=== PATIENT | female | born 1945 | race Caucasian/White ===

== ENCOUNTER 2016-08-12 07:30 | Inpatient (IN) | payer MEDICARE ==
[2016-07-30 11:42] VITALS: BP 130/94
--- NOTE | 2016-08-05 13:50 | HPE ---
DATE OF PLANNED ADMISSION: 08/12/2016 DATE: 08/04/2016 HISTORY OF PRESENT ILLNESS: This is a pleasant female with continuing symptomatic right hip osteoarthritis. She consented for a right total hip arthroplasty per Dr. Alexandro Swift. Medical optimization per Dr. Gabriele Harmon. X-rays are consistent with advanced osteoarthritis. ALLERGIES: No known drugs. MEDICATIONS: Includes: - Bactrim DS one by mouth twice a day for 7 days - tramadol HCl 50 mg one every 4 to 6 hours as needed for pain - Zoloft 100 mg - vitamin D 3000 units 1 tablet by mouth daily - spironolactone 25 mg one by mouth every day - furosemide 40 mg one by mouth every day - Irbesartan 300 mg - Coumadin which she will take 5 mg at bedtime the night before surgery MEDICAL PROBLEM LIST: Right hip arthritis Essential hypertension. Anxiety. Depression. Urinary infection. Chronic kidney disease. Appears to be stage IV per GFR of 27.2. PAST SURGICAL HISTORY: Bilateral total knee arthroplasties. FAMILY HISTORY: Pertinent for hypertension and diabetes. SOCIAL HISTORY: She is a former smoker. Rare alcohol consumption. Denies illicit drugs. REVIEW OF SYSTEMS: She denies chest pain, shortness of breath, dyspnea on exertion, fever, chills, malaise, upper respiratory or urinary tract symptoms. PHYSICAL EXAMINATION: Height 5 feet 2 inches, weight 222, temperature 98.6, BP 144/86, pulse 80, respirations 16. This is a pleasant well-developed, well-nourished obese female in no acute distress. She is alert and oriented times three. Mood and affect are appropriate. She is ambulating with favoring of her left lower and antalgic about her right lower extremity. Right lower extremity was inspected. Benign noninfectious looking. Right hip range of motion is limited throughout range. Bowel sounds times four, soft, nontender. Chest: Rises symmetrically. Lungs: Clear to auscultation. Neck: Supple. Negative jugular venous distention (JVD) or bruits. Normocephalic. Chest x-ray: No acute infiltrate, effusion, cardiomegaly, edema, atelectasis or mass was noted. Advanced degenerative changes about the bilateral shoulders. Stable chest as dictated by Dr. Chambers. EKG: Sinus rhythm as read by Dr. López. Lab results show 2+ leukocyte esterase, WBC urine auto 19. ESR 45, BUN 56, creatinine for GFR 1.94, GFR 27.2, AST/SGOT 13, alkaline phosphatase 121. IMPRESSION: 1. Symptomatic right hip osteoarthritis. 2. The patient consented for right total hip arthroplasty per Dr. Alexandro Swift. 3. Medical optimization per Dr. Harmon on 07/15/2016. 4. On-call to OR 2 grams IV Kefzol in OR. 5. Sequential compression devices (SCDs) and thromboembolism deterrents (TEDs) OR. 6. The patient is being treated for a urinary tract infection with Bactrim DS twice a day times 7 days. MTDD
[~2016-08-12] VITALS: Ht 162.6 cm; Wt 104.0 kg
[2016-08-12] VITALS (7 sets, daily range): BP systolic 135–153; BP diastolic 64–73
[~2016-08-12 07:30] MED LIST: /WARF25TA PO; ACET-654 PO; ALEV220T26 PO; AVAP300T23 PO; COUM2.5T11 PO; FURO20TA PO; IRBE300T10 PO; LORT5TAB PO; OMEP20CA3 PO; OXYC-299 PO; OXYC5TAB2 PO; PERCOCET PO; SERT20CO PO; SPIR25TA2 PO; SPIROLACTONE PO; TYLE167L PO; TYLE500T78 PO; VITAMIN D PO
[2016-08-12] MEDS ORDERED: LR 1,000 ML IV SCH ×2 (08:00→11:45)
[2016-08-12] MEDS: SERTRALINE 100 MG TAB PO SCH (09:00)
[2016-08-12] MEDS ORDERED: TRANEXAMIC ACID 100 MG/ML 10ML VIAL As Ordered ONE (09:11)
[2016-08-12] MEDS ORDERED: BUPIVACAINE HCL 0.5% 10 ML VIAL As Ordered ONE (09:11)
[2016-08-12] MEDS ORDERED: fentaNYL 100 MCG/2 ML INJECTION (J3010) As Ordered ONE ×2 (09:11→09:54)
[2016-08-12] MEDS ORDERED: BUPIVACAINE HCL 0.25% 30 ML VIAL As Ordered ONE (09:11)
[2016-08-12] MEDS ORDERED: EPINEPHrine INJ 1 MG/ML 1ML VIAL/AMP As Ordered ONE (09:12)
[2016-08-12] MEDS ORDERED: ceFAZolin 1GM INJ (J0690) As Ordered ONE (09:12)
[2016-08-12] MEDS ORDERED: PHENYLephrine HCL 500 MCG/5 ML (100MCG/ML) SYRINGE (J2370) As Ordered ONE (09:54)
[2016-08-12] MEDS ORDERED: LIDOCAINE 2% INJ 100 MG/5 ML SDV (FOR ANES.) As Ordered ONE (09:54)
[2016-08-12] MEDS ORDERED: MIDAZOLAM INJ 2 MG/2 ML VIAL (J2250) As Ordered ONE (09:54)
[2016-08-12] MEDS ORDERED: PROPOFOL 200 MG/20 ML VIAL As Ordered ONE (09:54)
[2016-08-12] MEDS ORDERED: PHENYLEPHRINE INJ 10MG/ML VIAL (J2370) As Ordered ONE (10:16)
[2016-08-12] MEDS ORDERED: BUPIVACAINE HCL 0.25% 30 ML VIAL XX ONE (10:20)
[2016-08-12] MEDS ORDERED: fentaNYL 100 MCG/2 ML INJECTION (J3010) XX ONE (10:20)
[2016-08-12] MEDS ORDERED: EPINEPHrine INJ 1 MG/ML 1ML VIAL/AMP XX ONE (10:20)
[2016-08-12] MEDS ORDERED: ceFAZolin 1GM INJ (J0690) IR ONE (10:20)
[2016-08-12] MEDS ORDERED: BUPIVACAINE HCL 0.5% 10 ML VIAL XX ONE (10:20)
[2016-08-12] MEDS ORDERED: TRANEXAMIC ACID 100 MG/ML 10ML VIAL XX ONE (10:20)
[2016-08-12] MEDS ORDERED: MORPHINE PCA 1MG/ML 100ML CADD As Ordered ONE (11:09)
[2016-08-12] MEDS: fentaNYL 100 MCG/2 ML INJECTION (J3010) IV PRN ×2 (11:30→11:40)
[2016-08-12] MEDS ORDERED: PERCOCET 5MG/325MG TAB PO PRN (11:45)
[2016-08-12] MEDS ORDERED: HYDROmorphone HCL 1 MG/ML SYRINGE (J1170) IV PRN (11:45)
[2016-08-12] MEDS ORDERED: ONDANSETRON 4MG/2ML VIAL (J2405) IV PRN ×2 (11:45→12:00)
[2016-08-12] MEDS: D5W/0.45% SODIUM CHLORIDE 1,000 ML IV SCH ×2 (12:00→20:20)
[2016-08-12] MEDS ORDERED: ACETAMINOPHEN TAB 650MG DOSE (2X325MG) PO PRN (12:00)
[2016-08-12] MEDS ORDERED: EPIDURAL/PCA KEYS XX PRN (12:00)
[2016-08-12] MEDS ORDERED: MORPHINE PCA 1MG/ML 100ML CADD IV PRN (12:00)
[2016-08-12] MEDS ORDERED: FLEET ENEMA PR PRN (12:00)
[2016-08-12] MEDS ORDERED: PATIENT IS CURRENTLY ON AN ON-Q PAIN BUSTER PAIN RELIEF SYSTEM XX SCH (12:00)
[2016-08-12] MEDS ORDERED: NALBUPHINE HCL 10 MG/ML AMP (J2300) IV PRN (12:00)
[2016-08-12] MEDS ORDERED: NALOXONE INJ 0.4 MG/1 ML VIAL (J2310) IV PRN (12:00)
[2016-08-12] MEDS: diphenhydrAMINE INJ 50MG/ML VIAL (J1200) IV PRN (12:15)
[2016-08-12] MEDS ORDERED: WARFARIN SOD 5 MG TAB PO ONE (17:00)
--- NOTE | 2016-08-12 20:48 | CR ---
DATE OF CONSULTATION: 08/12/2016 REASON FOR CONSULTATION: Medical management for postoperative patient. HISTORY OF PRESENT ILLNESS: The patient is a 70-year-old female with a history of chronic osteoarthritis, essential hypertension, anxiety/depression, chronic kidney disease (CKD), stage IV, who came to [facility] for her right hip replacement on 08/04/2016, and patient has been experiencing significant osteoarthritis. Previously patient had a right knee and left hip replacement. The outpatient preoperative optimization was performed by Dr. Harmon. Today she had right hip replacement for severe osteoarthritis. Patient tolerated the procedure well. No complications. ALLERGIES: No known drug allergies. HOME MEDICATIONS: - tramadol 50 mg by mouth every 4-6 hours as needed for pain - Zoloft 100 mg by mouth daily - vitamin D 3000 units one tablet by mouth daily - spironolactone 25 mg by mouth daily - Lasix 40 mg by mouth daily - irbesartan 30 mg by mouth daily PAST MEDICAL HISTORY: 1. Essential hypertension. 2. Anxiety/depression. 3. CKD, stage IV. PAST SURGICAL HISTORY: 1. Right hip replacement. 2. Right knee replacement. 3. Hysterectomy. 4. Partial thyroidectomy for calcium deposit on the thyroid. SOCIAL HISTORY: Patient used to smoke one pack daily for 15 years; quit 40 years ago. Patient drinks wine on a weekly basis. Denies any recreational drug use. REVIEW OF SYSTEMS: GENERAL: No acute distress. Patient denies any fevers or chills. HEENT: No vision change. No auditory changes CARDIOVASCULAR: No chest pain. No palpitations. RESPIRATORY: No cough. No sputum production. No wheezes. GASTROINTESTINAL: No abdominal pain. No nausea, vomiting. No diarrhea. MUSCULOSKELETAL: Patient just had a right hip replacement. Patient has severe osteoarthritis. Patient had a right knee and left hip replacement in the past. Patient does have intermittent lower extremity swelling. NEUROLOGIC: Denied any numbness or tingling. OBJECTIVE: VITAL SIGNS: Blood pressure is 141/57, heart rate 88, oxygen saturation 92% with 2 liters nasal cannula. GENERAL: No sign of acute distress. Alert and oriented times three. HEENT: Normocephalic, atraumatic. Extraocular motor grossly intact. CARDIOVASCULAR: Positive S1, S2. Regular rate. LUNGS: Decreased breath sounds; however, clear to auscultation bilaterally. No wheezes. ABDOMEN: Soft, nontender, nondistended. Bowel sounds present. EXTREMITIES: Mild edema. No sign of cyanosis. NEUROLOGIC: Sensation to fine touch grossly intact. Muscle strength intact. LABORATORY DATA: Done on 07/30/2016, WBC 8.8, hemoglobin is 12.4, hematocrit is 39.7, platelet count is 387. Sodium 139, potassium 4.8, chloride 105, carbon dioxide 24, BUN 56, creatinine 1.94, GFR is 27.2, fasting glucose is 90. ASSESSMENT AND PLAN: 1. Right hip replacement. Surgery date 08/12/2016. Will refer diet, pain control, activity level, and anticoagulation to the primary team. 2. Hypertension. At home patient is taking irbesartan, Lasix, and spironolactone. Currently patient is receiving intravenous (IV) fluid and will continue to observe the patient. We are not going to restart the Lasix or the spironolactone while the patient is on the fluid. 3. Stage IV chronic kidney injury. Will follow with renal functions. 4. Anxiety/depression. Restart the Zoloft. 5. Deep vein thrombosis (DVT) prophylaxis. Per primary team.
[2016-08-13 02:00] VITALS: BP 145/68
[2016-08-13] MEDS: diphenhydrAMINE INJ 50MG/ML VIAL (J1200) IV PRN (05:36)
[2016-08-13] MEDS: D5W/0.45% SODIUM CHLORIDE 1,000 ML IV SCH (05:37)
[2016-08-13 06:00] VITALS: BP 139/61
[2016-08-13] MEDS ORDERED: PERCOCET 5MG/325MG TAB PO PRN (06:30)
[2016-08-13] MEDS ORDERED: ONDANSETRON 4 MG TAB (S0181) PO PRN (06:30)
[2016-08-13 07:15] LABS: MEAN CORPUSCULAR HEMOGLOBIN 27.6 pg (27.0-33.0); MEAN CORPUSCULAR HGB CONC 31.1 g/dl (32.0-36.5); MEAN CORPUSCULAR VOLUME 88.7 fl (80.0-96.0); RED CELL DISTRIBUTION WIDTH 13.7 % (11.5-14.5); WHITE BLOOD COUNT 8.4 K/mm3 (4.0-10.0)
[2016-08-13 07:23] LABS: INR 1.21
[2016-08-13 07:29] LABS: CALCIUM LEVEL 8.7 MG/DL (8.8-10.2); CREATININE FOR GFR 1.72 MG/DL (0.55-1.02); GLOMERULAR FILTRATION RATE 31.3 (>45); POTASSIUM SERUM 4.7 MEQ/L (3.5-5.1)
[2016-08-13] MEDS: MOM 30ML SUSPENSION UDC PO SCH (07:33)
[2016-08-13] MEDS: SERTRALINE 100 MG TAB PO SCH (07:33)
[2016-08-13] MEDS: SENOKOT S TAB PO SCH ×2 (07:33→20:57)
[2016-08-13] MEDS: MIRALAX *UNIT DOSE* 17GM PACKET PO SCH (07:33)
[2016-08-13] MEDS: PERCOCET 5MG/325MG TAB PO PRN ×4 (07:34→20:57)
--- NOTE | 2016-08-13 11:06 | REP ---
Right hip series: Three views. History: Check placement. Findings: AP and cross-table lateral views of the right hip demonstrate that the patient is status post right hip arthroplasty. This is seen in good position. Mild vascular calcification is noted. Lateral skin juarez are seen. A hip replacement is noted on the contralateral side as well. Impression: Status post right hip arthroplasty. Signed by Jeramie Mcneil MD 08/13/2016 02:42 P
[2016-08-13] MEDS ORDERED: WARFARIN SOD 5 MG TAB PO ONE (17:00)
--- NOTE | 2016-08-13 18:52 | RO ---
DATE OF PROCEDURE: 08/12/2016 PREOPERATIVE DIAGNOSIS: Right hip osteoarthritis. POSTOPERATIVE DIAGNOSIS: Right hip osteoarthritis. OPERATION PERFORMED: Right total hip replacement. SURGEON: Dr. Alexandro Swift MEDICAL RECEPTIONIST BILLER: BREANNE Bee ANESTHESIA: HISTORY: A 70-year-old female who has persistent pain from an arthritic right hip, stable on medical problems, and morbid obesity. FINDINGS AT SURGERY: A 50 mm cup, a 32 mm head on a #5 Docena stem. ESTIMATED BLOOD LOSS: Between 150 and 200 mL. None replaced intraoperatively. Mr. Urbina assisted by manipulating the leg and retracting vital structures. PROCEDURE: After adequate spinal anesthesia a Kline catheter placed, intravenous (IV) antibiotics were administered. The patient turned right side up in the Jeff, padded and positioned appropriately. Then after identifying the leg, the incision made anterolaterally. Bleeding points controlled with electrocautery. Iliotibial (IT) band divided in line with its fibers. The abductors reflected anteriorly. The labrum incised and the hip dislocated intermedullary canal was reamed for a #5 Docena and the neck divided. Following this the acetabulum was exposed and reamed to a 49 and a 50 mm cup was placed. We were at the cotyloid fossa. The apex hole eliminator installed. The plastic installed. Then the femur was broached to a #5 with a good fit. Trial reduction was performed. We had good range of motion good stability and soft tissue tension. Then trial components were removed. The permanent components malleted into place. Bustos taper engaged and the hip reduced. The capsule was closed with a heavy PDS suture. PainBuster catheter was installed. The TXA was used to irrigate the wound and then the abductors were repaired back to their bony insertions on the greater trochanter. The IT band was repaired with heavy PDS, subcu closed in layers. It was quite thick almost 2 inches and then juarez for skin. A dry dressing applied. The patient rolled flat turned so that abduction pillow could be applied. The sequential compression stockings were operative on the down leg and the PainBuster was primed with 10 mL of Marcaine.
[2016-08-13 22:00] VITALS: BP 118/53
[2016-08-14] MEDS: PERCOCET 5MG/325MG TAB PO PRN ×4 (04:21→23:46)
[2016-08-14 06:00] VITALS: BP 120/61
[2016-08-14 06:45] LABS: INR 1.73
[2016-08-14 06:47] LABS: MEAN CORPUSCULAR HEMOGLOBIN 26.7 pg (27.0-33.0); MEAN CORPUSCULAR HGB CONC 30.2 g/dl (32.0-36.5); MEAN CORPUSCULAR VOLUME 88.4 fl (80.0-96.0); RED CELL DISTRIBUTION WIDTH 14.8 % (11.5-14.5)
[2016-08-14 06:55] LABS: CALCIUM LEVEL 8.7 MG/DL (8.8-10.2); CREATININE FOR GFR 1.88 MG/DL (0.55-1.02); GLOMERULAR FILTRATION RATE 28.2 (>45); POTASSIUM SERUM 4.4 MEQ/L (3.5-5.1)
[2016-08-14] MEDS ORDERED: COUM2.5T11 PO (07:40)
[2016-08-14] MEDS ORDERED: PERC5TAB6 PO (07:40)
[2016-08-14] MEDS: MOM 30ML SUSPENSION UDC PO SCH (09:00)
[2016-08-14] MEDS: MIRALAX *UNIT DOSE* 17GM PACKET PO SCH (09:00)
[2016-08-14] MEDS ORDERED: INFLUENZA VIRUS VACCINE HIGH DOSE 0.5 ML SYRINGE (90662) IM ONE (09:00)
[2016-08-14] MEDS: SENOKOT S TAB PO SCH ×2 (09:00→20:05)
[2016-08-14] MEDS: SERTRALINE 100 MG TAB PO SCH (09:10)
[2016-08-14] MEDS: oxyCODONE 10 MG CR TAB PO SCH ×2 (11:48→20:05)
[2016-08-14 14:00] VITALS: BP 127/66
[2016-08-14] MEDS ORDERED: WARFARIN SOD 3 MG TAB PO ONE (17:00)
[2016-08-14 22:00] VITALS: BP 115/56
[2016-08-15] MEDS: PERCOCET 5MG/325MG TAB PO PRN ×3 (03:55→17:39)
[2016-08-15 06:00] VITALS: BP 129/60
[2016-08-15 06:51] LABS: MEAN CORPUSCULAR HEMOGLOBIN 27.7 pg (27.0-33.0); MEAN CORPUSCULAR HGB CONC 30.8 g/dl (32.0-36.5); MEAN CORPUSCULAR VOLUME 89.8 fl (80.0-96.0); RED CELL DISTRIBUTION WIDTH 13.8 % (11.5-14.5); WHITE BLOOD COUNT 8.3 K/mm3 (4.0-10.0)
[2016-08-15 06:59] LABS: INR 1.69
[2016-08-15 07:08] LABS: CALCIUM LEVEL 8.6 MG/DL (8.8-10.2); CREATININE FOR GFR 1.99 MG/DL (0.55-1.02); GLOMERULAR FILTRATION RATE 26.5 (>45); POTASSIUM SERUM 4.7 MEQ/L (3.5-5.1)
[2016-08-15] MEDS: MIRALAX *UNIT DOSE* 17GM PACKET PO SCH (09:28)
[2016-08-15] MEDS: SENOKOT S TAB PO SCH ×2 (09:28→20:00)
[2016-08-15] MEDS: SERTRALINE 100 MG TAB PO SCH (09:28)
[2016-08-15] MEDS: MOM 30ML SUSPENSION UDC PO SCH (09:29)
[2016-08-15] MEDS: oxyCODONE 10 MG CR TAB PO SCH ×2 (09:29→20:02)
[2016-08-15 14:00] VITALS: BP 133/62
[2016-08-15] MEDS ORDERED: WARFARIN SOD 4 MG TAB PO ONE (17:00)
[2016-08-15 22:00] VITALS: BP 128/66
[2016-08-16] MEDS: PERCOCET 5MG/325MG TAB PO PRN ×2 (04:12→10:28)
[2016-08-16 06:00] VITALS: BP 106/55
[2016-08-16 06:38] LABS: MEAN CORPUSCULAR HEMOGLOBIN 27.6 pg (27.0-33.0); MEAN CORPUSCULAR HGB CONC 30.3 g/dl (32.0-36.5); MEAN CORPUSCULAR VOLUME 90.9 fl (80.0-96.0); RED CELL DISTRIBUTION WIDTH 13.9 % (11.5-14.5); WHITE BLOOD COUNT 6.8 K/mm3 (4.0-10.0)
[2016-08-16 06:46] LABS: INR 1.79
[2016-08-16 06:51] LABS: CALCIUM LEVEL 8.8 MG/DL (8.8-10.2); CREATININE FOR GFR 2.13 MG/DL (0.55-1.02); GLOMERULAR FILTRATION RATE 24.5 (>45); POTASSIUM SERUM 4.9 MEQ/L (3.5-5.1)
[2016-08-16] MEDS: MOM 30ML SUSPENSION UDC PO SCH (08:34)
[2016-08-16] MEDS: MIRALAX *UNIT DOSE* 17GM PACKET PO SCH (08:34)
[2016-08-16] MEDS: SENOKOT S TAB PO SCH (08:35)
[2016-08-16] MEDS: SERTRALINE 100 MG TAB PO SCH (08:35)
[2016-08-16] MEDS: oxyCODONE 10 MG CR TAB PO SCH (08:36)
== END 2016-08-16 11:27 | disposition home health service (06) | DRG 470 ==
LOC: M OR 07:30 → M MS5PR 14:30
PROVIDERS: ADMIT Orthopaedic Surgery; ATTEND Orthopaedic Surgery
PROC: 0SR902A Replacement of Right Hip Joint with Metal on Polyethylene Synthetic Substitute, Uncemented, Open Approach (ICD-10-PCS; principal; 2016-08-12 09:05)
DX: M16.11 Unilateral primary osteoarthritis, right hip (principal); N18.4 Chronic kidney disease, stage 4 (severe); I12.9 Hypertensive chronic kidney disease with stage 1 through stage 4 chronic kidney disease, or unspecified chronic kidney disease; F41.8 Other specified anxiety disorders; Z96.642 Presence of left artificial hip joint; Z96.651 Presence of right artificial knee joint; Z90.710 Acquired absence of both cervix and uterus; Z79.899 Other long term (current) drug therapy; Z87.891 Personal history of nicotine dependence; Z83.3 Family history of diabetes mellitus; Z82.49 Family history of ischemic heart disease and other diseases of the circulatory system

== ENCOUNTER → 2016-08-19 | Outpatient (REF) | payer MEDICARE ==
[~2016-08-19] MED LIST changes: +PERC5TAB6 PO
[2016-08-19 13:35] LABS: INR 1.69
== END ==
LOC: M SHH 13:02 → M LAB REF 13:02
PROVIDERS: ATTEND Nurse Practitioner Family
DX: Z51.81 Encounter for therapeutic drug level monitoring (principal); Z79.01 Long term (current) use of anticoagulants

== ENCOUNTER → 2016-08-23 | Outpatient (REF) | payer MEDICARE ==
[2016-08-23 13:55] LABS: INR 1.93
== END ==
LOC: M SHH 13:27
PROVIDERS: ATTEND Nurse Practitioner Family
DX: Z51.81 Encounter for therapeutic drug level monitoring (principal); Z79.01 Long term (current) use of anticoagulants

== ENCOUNTER → 2016-08-26 | Outpatient (REF) | payer MEDICARE ==
[2016-08-26 14:19] LABS: INR 1.31
== END ==
LOC: M SHH 13:32
PROVIDERS: ATTEND Nurse Practitioner Family
DX: Z51.81 Encounter for therapeutic drug level monitoring (principal); Z79.01 Long term (current) use of anticoagulants

== ENCOUNTER → 2016-08-30 | Outpatient (REF) | payer MEDICARE ==
[2016-08-30 12:39] LABS: INR 1.52
== END ==
LOC: M SHH 11:52
PROVIDERS: ATTEND Internal Medicine
DX: Z51.81 Encounter for therapeutic drug level monitoring (principal); Z79.01 Long term (current) use of anticoagulants

== ENCOUNTER → 2016-09-02 | Outpatient (REF) | payer MEDICARE ==
[2016-09-02 13:01] LABS: INR 1.98
== END ==
LOC: M SHH 12:22
PROVIDERS: ATTEND Nurse Practitioner Family
DX: Z51.81 Encounter for therapeutic drug level monitoring (principal); Z79.01 Long term (current) use of anticoagulants

== ENCOUNTER → 2016-09-06 | Outpatient (REF) | payer MEDICARE ==
[2016-09-06 10:50] LABS: INR 1.93
== END ==
LOC: M SHH 10:22 → M LAB REF 10:22
PROVIDERS: ATTEND Nurse Practitioner Family
DX: Z79.01 Long term (current) use of anticoagulants (principal)

== ENCOUNTER → 2016-09-09 | Outpatient (REF) | payer MEDICARE ==
[2016-09-09 12:36] LABS: INR 2.32
== END ==
LOC: M SHH 12:06
PROVIDERS: ATTEND Nurse Practitioner Family
DX: Z79.01 Long term (current) use of anticoagulants (principal)

== ENCOUNTER → 2016-12-21 | Outpatient (REF) | payer MEDICARE ==
[2016-12-21 12:11] LABS: MEAN CORPUSCULAR HEMOGLOBIN 25.7 pg (27.0-33.0); MEAN CORPUSCULAR HGB CONC 30.5 g/dl (32.0-36.5); MEAN CORPUSCULAR VOLUME 84.2 fl (80.0-96.0); RED CELL DISTRIBUTION WIDTH 14.5 % (11.5-14.5); WHITE BLOOD COUNT 8.1 K/mm3 (4.0-10.0)
[2016-12-21 12:29] LABS: ALBUMIN 3.9 GM/DL (3.2-5.2); ALBUMIN/GLOBULIN RATIO 1.15 (1.00-1.93); BILIRUBIN,TOTAL 0.3 MG/DL (0.2-1.0); CALCIUM LEVEL 9.4 MG/DL (8.8-10.2); CREATININE FOR GFR 1.44 MG/DL (0.55-1.02); GLOMERULAR FILTRATION RATE 38.3 (>39); TOTAL PROTEIN 7.3 GM/DL (6.4-8.2)
== END ==
LOC: M LABDRAW1 11:40
PROVIDERS: ATTEND Family Medicine
DX: E11.9 Type 2 diabetes mellitus without complications (principal); E55.9 Vitamin D deficiency, unspecified; I10 Essential (primary) hypertension

== ENCOUNTER → 2017-03-29 | Outpatient (CLI) | payer MEDICARE ==
[~2017-03-29] MED LIST changes: -COUM2.5T11 PO; +COUM2.5T17 PO; +OXYC-141 PO; -OXYC-299 PO; +PERC5TAB12 PO; -PERC5TAB6 PO
--- NOTE | 2017-03-29 16:36 | REP ---
Urinary tract sonography: History: Chronic kidney disease stage III. Comparison study July 03, 2014. Findings: Scanning at the level of the urinary bladder shows no abnormality. Renal cortical echogenicity pattern is normal and renal contours are smooth on both sides. The right kidney measures 10.6 x 4.4 x 3.7 cm. Left renal dimensions are 10.0 x 4.2 x 4.7 cm. Some cortical thinning is seen bilaterally. There is a 1.9 x 2.3 x 1.9 cm cyst at the upper pole of the right kidney. There is a 1.9 x 1.3 x 1.7 cm hypoechoic area seen projecting from the periphery of the lower pole of the right kidney. This is consistent with a cyst. There is a 1.7 cm hypoechoic area in the lateral aspect of the right kidney consistent with a cyst as well. Two of these three were noted on the 2014 prior study. No mass or hydronephrosis is seen on either side. Impression: Three small cortical cysts right kidney. Mild diffuse cortical atrophy. Otherwise negative. Signed by Jeramie Mcneil MD 03/29/2017 05:01 P
== END ==
LOC: M RAD 12:17
PROVIDERS: ATTEND Internal Medicine Nephrology
DX: N28.1 Cyst of kidney, acquired (principal); N26.1 Atrophy of kidney (terminal); N18.3 Chronic kidney disease, stage 3 (moderate)

== ENCOUNTER → 2019-01-18 | Outpatient (REF) | payer MEDICARE ==
[~2019-01-18] MED LIST changes: -/WARF25TA PO; +COUM1TAB18 PO; +OXYC1TAB23 PO; -PERCOCET PO; +SPIR-10 PO; -SPIR25TA2 PO
[2019-01-18 14:07] LABS: PERCENT SATURATION 10.1 % (13.2-45.0)
== END ==
LOC: M LAB REF 13:18
PROVIDERS: ATTEND Internal Medicine Nephrology
DX: D50.9 Iron deficiency anemia, unspecified (principal)

== ENCOUNTER → 2020-04-19 | Outpatient (REF) | payer MEDICARE | LOC: M SFHCADAM 19:13 | PROVIDERS: ATTEND Physician Assistant | DX: J02.9 Acute pharyngitis, unspecified (principal) ==

== ENCOUNTER 2022-02-24 18:57 | Inpatient (IN) | payer MEDICARE ==
[~2022-02-24] VITALS: Ht 160 cm; Wt 106.9 kg
[2022-02-25] MEDS ORDERED: ISOVUE-370 76% 100ML VIAL As Ordered ONE (00:08)
[2022-02-25 00:10] LABS: INR 1.07; PROTHROMBIN TIME 14.3 SECONDS (12.7-14.5)
[2022-02-25 00:11] LABS: PARTIAL THROMBOPLASTIN TIME 30.9 SECONDS (25.9-37.0)
[2022-02-25 00:35] LABS: BASO % 0.3 % (0.0-1.0); EOS # 0.1 10^3/uL (0.0-0.5); EOS % 0.5 % (0.0-3.0); HEMATOCRIT 35.6 % (36.0-47.0); HEMOGLOBIN 10.6 g/dl (12.0-15.5); LYMPH # 0.9 10^3/uL (1.5-5.0); MEAN CORPUSCULAR HGB CONC 29.8 g/dl (32.0-36.5); MEAN CORPUSCULAR VOLUME 90.6 fl (80.0-96.0); MONO # 0.6 10^3/uL (0.0-0.8); MONO % 5.8 % (2.0-8.0); NEUTROPHILS # 8.7 10^3/uL (1.5-8.5); NEUTROPHILS % 83.9 % (36.0-66.0); PLATELET COUNT, AUTOMATED 324 10^3/uL (150-450); RED BLOOD COUNT 3.93 10^6/uL (4.00-5.40); WHITE BLOOD COUNT 10.4 10^3/uL (4.0-10.0)
[2022-02-25 01:37] LABS: CALCIUM LEVEL 9.7 MG/DL (8.8-10.2); CREATININE FOR GFR 5.89 MG/DL (0.55-1.30); GLOMERULAR FILTRATION RATE 7.4 (>39); POTASSIUM SERUM 6.6 MEQ/L (3.5-5.1)
[2022-02-25 01:42] LABS: RSV AMPLIFICATION NEGATIVE (NEGATIVE)
[2022-02-25] MEDS ORDERED: HumuLIN R (REGULAR) INSULIN (NovoLIN R) **100U/ML** PER UNIT IV ONE (02:00)
[2022-02-25] MEDS ORDERED: CALCIUM GLUCONATE 1,000MG/10ML VIAL (100MG/ML) (J0610) IV ONE (02:00)
[2022-02-25] MEDS ORDERED: DEXTROSE 50% 50 ML SYRINGE IV ONE (02:00)
[2022-02-25] MEDS ORDERED: NS 500 ML IV ONE (02:05)
[2022-02-25] MEDS ORDERED: ACETAMINOPHEN TAB 650MG DOSE (2X325MG) PO PRN (02:05)
[2022-02-25] MEDS ORDERED: BISACODYL 5 MG TAB PO PRN (03:10)
[2022-02-25] MEDS ORDERED: NS 1,000 ML IV SCH (03:10)
[2022-02-25] MEDS ORDERED: SPIR-10 PO (04:05)
[2022-02-25] MEDS ORDERED: ACET-897 PO (04:05)
[2022-02-25] MEDS ORDERED: FURO40TA2 PO (04:05)
[2022-02-25] MEDS ORDERED: METO1TAB32 PO (04:05)
[2022-02-25] MEDS ORDERED: VITA30004 PO (04:05)
[2022-02-25] MEDS ORDERED: OMEP-173 PO (04:05)
[2022-02-25] MEDS ORDERED: ZOLO100T PO (04:05)
[2022-02-25] MEDS ORDERED: ACET300T47 PO (04:05)
[2022-02-25] MEDS ORDERED: TARTCAP PO (04:05)
[2022-02-25] MEDS ORDERED: HOME MED LIST COMPLETE! XX SCH (04:10)
[2022-02-25 05:05] LABS: BASO % 0.3 % (0.0-1.0); EOS % 0.2 % (0.0-3.0); HEMATOCRIT 33.1 % (36.0-47.0); LYMPH # 0.9 10^3/uL (1.5-5.0); LYMPH % 10.3 % (24.0-44.0); MEAN CORPUSCULAR HGB CONC 30.2 g/dl (32.0-36.5); MEAN CORPUSCULAR VOLUME 89.5 fl (80.0-96.0); MONO # 0.7 10^3/uL (0.0-0.8); MONO % 7.4 % (2.0-8.0); NEUTROPHILS # 7.3 10^3/uL (1.5-8.5); NEUTROPHILS % 81.5 % (36.0-66.0); PLATELET COUNT, AUTOMATED 262 10^3/uL (150-450)
[2022-02-25 05:44] LABS: CALCIUM LEVEL 9.8 MG/DL (8.8-10.2); CREATININE FOR GFR 5.57 MG/DL (0.55-1.30); GLOMERULAR FILTRATION RATE 7.9 (>39); POTASSIUM SERUM 6.3 MEQ/L (3.5-5.1)
[2022-02-25 05:48] LABS: ALBUMIN 3.9 GM/DL (3.2-5.2); BILIRUBIN,TOTAL 0.3 MG/DL (0.2-1.0); CALCIUM LEVEL 9.8 MG/DL (8.8-10.2); CREATININE FOR GFR 5.56 MG/DL (0.55-1.30); GLOMERULAR FILTRATION RATE 7.9 (>39); POTASSIUM SERUM 6.4 MEQ/L (3.5-5.1); TOTAL PROTEIN 7.1 GM/DL (6.4-8.2)
[2022-02-25] MEDS ORDERED: SODIUM BICARBONATE 8.4% INJ 50 ML SYRINGE IV STA (05:50)
[2022-02-25] MEDS ORDERED: HumuLIN R (REGULAR) INSULIN (NovoLIN R) **100U/ML** PER UNIT IV STA (05:50)
[2022-02-25] MEDS ORDERED: DEXTROSE 50% 50 ML SYRINGE IV STA (05:50)
[2022-02-25] MEDS: HEPARIN SOD (PORCINE) 5000UNITS/ML 1ML VIAL/SYRINGE SQ SCH ×3 (06:00→21:30)
[2022-02-25] MEDS ORDERED: SOD POLYSTYRENE SULFONATE SUSP 15GM 60ML UD PO ONE (06:00)
[2022-02-25] MEDS ORDERED: CALCIUM GLUCONATE 1,000 MG in D5W MINI-BAG PLUS 100 ML IV ONE (06:00)
[2022-02-25 08:00] VITALS: BP 106/56
[2022-02-25 08:43] LABS: CALCIUM LEVEL 10.1 MG/DL (8.8-10.2); CREATININE FOR GFR 5.49 MG/DL (0.55-1.30); GLOMERULAR FILTRATION RATE 8.1 (>39); POTASSIUM SERUM 6.1 MEQ/L (3.5-5.1)
[2022-02-25] MEDS: METOPROLOL SUCC *XL* 25MG TAB (TopROL *XL*) PO SCH (08:52)
[2022-02-25] MEDS: DOCUSATE SODIUM 100MG CAPSULE PO SCH ×2 (08:58→21:30)
[2022-02-25] MEDS: OMEPRAZOLE 20MG CAP PO SCH (08:58)
[2022-02-25 12:00] VITALS: BP 110/54
[2022-02-25] MEDS: PATIROMER SORBITEX CALCIUM 8.4 GM POWDER PACKET (VELTASSA) PO SCH (14:50)
[2022-02-25 16:00] VITALS: BP 126/58
[2022-02-25] MEDS: SODIUM BICARBONATE 150 MEQ in STERILE WATER LITER BAG 1,000 ML IV SCH (16:22)
[2022-02-25 20:00] VITALS: BP 128/58
[2022-02-25 20:36] LABS: CALCIUM LEVEL 9.3 MG/DL (8.8-10.2); CREATININE FOR GFR 4.72 MG/DL (0.55-1.30); GLOMERULAR FILTRATION RATE 9.6 (>39)
[2022-02-25] MEDS: SODIUM BICARBONATE 325 MG TAB PO SCH (21:30)
[2022-02-25 23:31] VITALS: BP 124/55
[2022-02-26] VITALS (16 sets, daily range): BP systolic 103–137; BP diastolic 53–59; O2SAT 95–98
[2022-02-26] MEDS: SODIUM BICARBONATE 150 MEQ in STERILE WATER LITER BAG 1,000 ML IV SCH ×2 (03:12→14:31)
[2022-02-26 04:45] LABS: BASO % 0.3 % (0.0-1.0); EOS # 0.1 10^3/uL (0.0-0.5); EOS % 1.9 % (0.0-3.0); HEMATOCRIT 28.4 % (36.0-47.0); HEMOGLOBIN 8.6 g/dl (12.0-15.5); LYMPH # 0.9 10^3/uL (1.5-5.0); LYMPH % 13.7 % (24.0-44.0); MEAN CORPUSCULAR HEMOGLOBIN 26.3 pg (27.0-33.0); MEAN CORPUSCULAR HGB CONC 30.3 g/dl (32.0-36.5); MEAN CORPUSCULAR VOLUME 86.9 fl (80.0-96.0); MONO # 0.6 10^3/uL (0.0-0.8); MONO % 8.6 % (2.0-8.0); NEUTROPHILS # 5.1 10^3/uL (1.5-8.5); NEUTROPHILS % 75.1 % (36.0-66.0); PLATELET COUNT, AUTOMATED 244 10^3/uL (150-450); RED BLOOD COUNT 3.27 10^6/uL (4.00-5.40); WHITE BLOOD COUNT 6.8 10^3/uL (4.0-10.0)
[2022-02-26 05:12] LABS: CREATININE FOR GFR 4.55 MG/DL (0.55-1.30); MAGNESIUM LEVEL 2.3 MG/DL (1.8-2.4); PHOSPHORUS LEVEL 4.9 MG/DL (2.5-4.9)
[2022-02-26] MEDS: HEPARIN SOD (PORCINE) 5000UNITS/ML 1ML VIAL/SYRINGE SQ SCH ×3 (06:20→21:12)
[2022-02-26 09:37] LABS: TOTAL 25(OH) VITAMIN D 41.3 NG/ML (30.0-100.0)
[2022-02-26] MEDS: SODIUM BICARBONATE 325 MG TAB PO SCH (09:37)
[2022-02-26] MEDS: DOCUSATE SODIUM 100MG CAPSULE PO SCH ×2 (09:37→21:00)
[2022-02-26] MEDS: METOPROLOL SUCC *XL* 25MG TAB (TopROL *XL*) PO SCH (09:37)
[2022-02-26] MEDS: OMEPRAZOLE 20MG CAP PO SCH (09:37)
[2022-02-26] MEDS: PATIROMER SORBITEX CALCIUM 8.4 GM POWDER PACKET (VELTASSA) PO SCH (12:31)
[2022-02-27] VITALS (12 sets, daily range): BP systolic 128–149; BP diastolic 55–64; O2SAT 92–97
[2022-02-27] MEDS: HEPARIN SOD (PORCINE) 5000UNITS/ML 1ML VIAL/SYRINGE SQ SCH ×3 (05:27→23:19)
[2022-02-27] MEDS: SODIUM BICARBONATE 150 MEQ in STERILE WATER LITER BAG 1,000 ML IV SCH (05:27)
[2022-02-27 06:26] LABS: BASO % 0.2 % (0.0-1.0); EOS # 0.1 10^3/uL (0.0-0.5); EOS % 0.8 % (0.0-3.0); HEMATOCRIT 27.5 % (36.0-47.0); HEMOGLOBIN 8.5 g/dl (12.0-15.5); LYMPH # 0.9 10^3/uL (1.5-5.0); LYMPH % 14.7 % (24.0-44.0); MEAN CORPUSCULAR HEMOGLOBIN 26.9 pg (27.0-33.0); MEAN CORPUSCULAR HGB CONC 30.9 g/dl (32.0-36.5); MONO # 0.6 10^3/uL (0.0-0.8); MONO % 10.1 % (2.0-8.0); NEUTROPHILS # 4.7 10^3/uL (1.5-8.5); NEUTROPHILS % 73.9 % (36.0-66.0); PLATELET COUNT, AUTOMATED 234 10^3/uL (150-450); RED BLOOD COUNT 3.16 10^6/uL (4.00-5.40); WHITE BLOOD COUNT 6.3 10^3/uL (4.0-10.0)
[2022-02-27 06:48] LABS: CALCIUM LEVEL 9.2 MG/DL (8.8-10.2); CREATININE FOR GFR 3.18 MG/DL (0.55-1.30); GLOMERULAR FILTRATION RATE 15.1 (>39); POTASSIUM SERUM 3.9 MEQ/L (3.5-5.1)
[2022-02-27] MEDS: DOCUSATE SODIUM 100MG CAPSULE PO SCH ×2 (09:00→20:54)
[2022-02-27] MEDS: OMEPRAZOLE 20MG CAP PO SCH (09:37)
[2022-02-27] MEDS: METOPROLOL SUCC *XL* 25MG TAB (TopROL *XL*) PO SCH (09:37)
[2022-02-27] MEDS: ACETAMINOPHEN 500 MG TAB PO SCH ×2 (09:37→20:54)
[2022-02-28] VITALS: BP 135/58
[2022-02-28 04:00] VITALS: BP 130/60
[2022-02-28 05:21] LABS: BASO % 0.3 % (0.0-1.0); EOS # 0.2 10^3/uL (0.0-0.5); EOS % 2.9 % (0.0-3.0); HEMATOCRIT 26.4 % (36.0-47.0); HEMOGLOBIN 7.9 g/dl (12.0-15.5); LYMPH # 1.1 10^3/uL (1.5-5.0); LYMPH % 19.4 % (24.0-44.0); MEAN CORPUSCULAR HEMOGLOBIN 26.5 pg (27.0-33.0); MEAN CORPUSCULAR HGB CONC 29.9 g/dl (32.0-36.5); MEAN CORPUSCULAR VOLUME 88.6 fl (80.0-96.0); MONO # 0.6 10^3/uL (0.0-0.8); MONO % 9.4 % (2.0-8.0); NEUTROPHILS % 67.5 % (36.0-66.0); PLATELET COUNT, AUTOMATED 211 10^3/uL (150-450); RED BLOOD COUNT 2.98 10^6/uL (4.00-5.40); WHITE BLOOD COUNT 5.9 10^3/uL (4.0-10.0)
[2022-02-28 05:46] LABS: CALCIUM LEVEL 8.9 MG/DL (8.8-10.2); CREATININE FOR GFR 2.77 MG/DL (0.55-1.30); GLOMERULAR FILTRATION RATE 17.8 (>39); POTASSIUM SERUM 3.8 MEQ/L (3.5-5.1)
[2022-02-28] MEDS: HEPARIN SOD (PORCINE) 5000UNITS/ML 1ML VIAL/SYRINGE SQ SCH ×3 (06:06→21:28)
[2022-02-28 08:15] VITALS: BP 137/60
[2022-02-28] MEDS: DOCUSATE SODIUM 100MG CAPSULE PO SCH ×2 (09:00→21:00)
[2022-02-28] MEDS ORDERED: DARBEPOETIN 100 MCG/0.5 ML *NON-DIALYSIS* SYRINGE (J0881) SC SCH (09:00)
[2022-02-28] MEDS: OMEPRAZOLE 20MG CAP PO SCH (10:06)
[2022-02-28] MEDS: METOPROLOL SUCC *XL* 25MG TAB (TopROL *XL*) PO SCH (10:07)
[2022-02-28] MEDS: ACETAMINOPHEN 500 MG TAB PO SCH ×2 (10:07→21:28)
[2022-02-28 16:15] VITALS: BP 140/76
[2022-02-28 20:00] VITALS: BP 130/58
[2022-03-01 04:00] VITALS: BP 139/63
[2022-03-01 06:35] LABS: BASO % 0.5 % (0.0-1.0); EOS # 0.2 10^3/uL (0.0-0.5); EOS % 3.6 % (0.0-3.0); HEMATOCRIT 26.9 % (36.0-47.0); LYMPH # 1.3 10^3/uL (1.5-5.0); LYMPH % 19.9 % (24.0-44.0); MEAN CORPUSCULAR HEMOGLOBIN 26.9 pg (27.0-33.0); MEAN CORPUSCULAR HGB CONC 29.7 g/dl (32.0-36.5); MEAN CORPUSCULAR VOLUME 90.6 fl (80.0-96.0); MONO # 0.5 10^3/uL (0.0-0.8); MONO % 8.5 % (2.0-8.0); NEUTROPHILS # 4.2 10^3/uL (1.5-8.5); NEUTROPHILS % 66.9 % (36.0-66.0); PLATELET COUNT, AUTOMATED 218 10^3/uL (150-450); RED BLOOD COUNT 2.97 10^6/uL (4.00-5.40); WHITE BLOOD COUNT 6.3 10^3/uL (4.0-10.0)
[2022-03-01] MEDS: HEPARIN SOD (PORCINE) 5000UNITS/ML 1ML VIAL/SYRINGE SQ SCH (06:36)
[2022-03-01 06:56] LABS: CALCIUM LEVEL 9.3 MG/DL (8.8-10.2); CREATININE FOR GFR 2.86 MG/DL (0.55-1.30); GLOMERULAR FILTRATION RATE 17.1 (>39); POTASSIUM SERUM 4.2 MEQ/L (3.5-5.1)
[2022-03-01 08:00] VITALS: BP 162/70
[2022-03-01] MEDS: DOCUSATE SODIUM 100MG CAPSULE PO SCH (08:24)
[2022-03-01] MEDS: METOPROLOL SUCC *XL* 25MG TAB (TopROL *XL*) PO SCH (08:25)
[2022-03-01] MEDS: OMEPRAZOLE 20MG CAP PO SCH (08:25)
[2022-03-01] MEDS: ACETAMINOPHEN 500 MG TAB PO SCH (08:26)
[2022-03-01 09:49] VITALS: BP 162/70
[2022-03-01] MEDS ORDERED: AMLO25TA PO (10:29)
[2022-03-01 12:00] VITALS: BP 124/61
== END 2022-03-01 12:22 | disposition home health service (06) | DRG 683 ==
LOC: M ED 18:57 → EDBD 18:57 → M ED INP 02-25 02:01 → ENRESERV 02-25 11:49 → M PCU 02-25 12:47
PROVIDERS: ADMIT Internal Medicine; ATTEND Internal Medicine Nephrology
DX: N17.9 Acute kidney failure, unspecified (principal); S02.31XA Fracture of orbital floor, right side, initial encounter for closed fracture; G93.49 Other encephalopathy; E87.2 Acidosis; Z68.41 Body mass index [BMI] 40.0-44.9, adult; E87.5 Hyperkalemia; I12.9 Hypertensive chronic kidney disease with stage 1 through stage 4 chronic kidney disease, or unspecified chronic kidney disease; E03.9 Hypothyroidism, unspecified; M06.9 Rheumatoid arthritis, unspecified; N18.32 Chronic kidney disease, stage 3b; E66.01 Morbid (severe) obesity due to excess calories; M19.90 Unspecified osteoarthritis, unspecified site; F32.A Depression, unspecified; D64.9 Anemia, unspecified; I87.2 Venous insufficiency (chronic) (peripheral); M48.061 Spinal stenosis, lumbar region without neurogenic claudication; F41.9 Anxiety disorder, unspecified; K59.00 Constipation, unspecified; K21.9 Gastro-esophageal reflux disease without esophagitis; M25.561 Pain in right knee; R32 Unspecified urinary incontinence; Z79.899 Other long term (current) drug therapy; Z96.643 Presence of artificial hip joint, bilateral; Z87.891 Personal history of nicotine dependence; W18.09XA Striking against other object with subsequent fall, initial encounter; Y92.009 Unspecified place in unspecified non-institutional (private) residence as the place of occurrence of the external cause; Y93.89 Activity, other specified; Y99.8 Other external cause status; M50.30 Other cervical disc degeneration, unspecified cervical region

== ENCOUNTER → 2023-05-20 | Outpatient (CLI) | payer MEDICARE ==
[~2023-05-20] MED LIST changes: +ACET-897 PO; +ACET300T47 PO; +AMLO25TA PO; +FURO40TA2 PO; +METO1TAB32 PO; +OMEP-173 PO; +TARTCAP PO; +VITA30004 PO; +ZOLO100T PO
[2023-05-20 10:41] LABS: HEMATOCRIT 37.1 % (36.0-47.0); HEMOGLOBIN 11.4 g/dl (12.0-15.5); MEAN CORPUSCULAR HEMOGLOBIN 28.3 pg (27.0-33.0); MEAN CORPUSCULAR HGB CONC 30.7 g/dl (32.0-36.5); MEAN CORPUSCULAR VOLUME 92.1 fl (80.0-96.0); PLATELET COUNT, AUTOMATED 289 10^3/uL (150-450); RED BLOOD COUNT 4.03 10^6/uL (4.00-5.40); WHITE BLOOD COUNT 6.8 10^3/uL (4.0-10.0)
[2023-05-20 10:52] LABS: INR 1.03; PROTHROMBIN TIME 13.2 SECONDS (12.5-14.5)
[2023-05-20 11:17] LABS: ALBUMIN 3.9 G/DL (3.2-5.2); BILIRUBIN,TOTAL 0.3 MG/DL (0.3-1.2); CALCIUM LEVEL 10.1 MG/DL (8.3-10.6); CHOLESTEROL RISK RATIO 3.68 (<5); CREATININE FOR GFR 1.73 MG/DL (0.55-1.30); GLOMERULAR FILTRATION RATE 30.5 (>39); THYROID STIMULATING HORMONE 1.384 uIU/ML (0.55-4.78)
== END ==
LOC: M RAD 09:29
PROVIDERS: ATTEND Family Medicine
DX: I10 Essential (primary) hypertension (principal); R53.83 Other fatigue; Z79.01 Long term (current) use of anticoagulants

== ENCOUNTER 2023-05-31 10:08 | Day surgery (SDC) | payer MEDICARE ==
[~2023-05-31] VITALS: Ht 157.5 cm; Wt 88.3 kg
[~2023-05-31 10:08] MED LIST changes: +ALLO100T PO; +BSS IRR 500ML/OMIDRIA 4ML IRR BAG (OR ONLY) As Ordered ONE; +CEFUROXIME 1MG/0.1ML INTRACAMERAL INJ As Ordered ONE; +CYCLOPENTOLATE 1% OPHTH SOLN 2ML BTL OD SCH; +LIDOCAINE 1% SDV 5ML VIAL As Ordered ONE; +MIDAZOLAM INJ 2MG/2ML VIAL As Ordered ONE; +OFLOXACIN 0.3 % (OCUFLOX) OPTH SOL 5ML OD SCH; +PHENYLEPHRINE 2.5% OPHTH SOL 2ML OD SCH; +PROPARACAINE 0.5% OPHTH SOL 15ML OD ONE; +TROPICAMIDE 1% OPHTH SOLN 15ML OD SCH; +fentaNYL 100 MCG/2 ML INJECTION As Ordered ONE
[2023-05-31 10:35] VITALS: BP 183/81; TEMP 98; O2SAT 98
== END 2023-05-31 10:40 | disposition home or self-care (01) ==
LOC: M SDC 10:08
PROVIDERS: ATTEND Ophthalmology
DX: H25.11 Age-related nuclear cataract, right eye (principal); H21.81 Floppy iris syndrome; I25.2 Old myocardial infarction; I10 Essential (primary) hypertension; K21.9 Gastro-esophageal reflux disease without esophagitis; F41.9 Anxiety disorder, unspecified; Z79.899 Other long term (current) drug therapy
CPT/HCPCS: 66982; J0697; J1097; J2250; J3010; V2632

== ENCOUNTER → 2023-12-30 | Outpatient (CLI) | payer MEDICARE ==
[~2023-12-30] MED LIST changes: -BSS IRR 500ML/OMIDRIA 4ML IRR BAG (OR ONLY) As Ordered ONE; -CEFUROXIME 1MG/0.1ML INTRACAMERAL INJ As Ordered ONE; -CYCLOPENTOLATE 1% OPHTH SOLN 2ML BTL OD SCH; -LIDOCAINE 1% SDV 5ML VIAL As Ordered ONE; -MIDAZOLAM INJ 2MG/2ML VIAL As Ordered ONE; -OFLOXACIN 0.3 % (OCUFLOX) OPTH SOL 5ML OD SCH; -PHENYLEPHRINE 2.5% OPHTH SOL 2ML OD SCH; -PROPARACAINE 0.5% OPHTH SOL 15ML OD ONE; -TROPICAMIDE 1% OPHTH SOLN 15ML OD SCH; -fentaNYL 100 MCG/2 ML INJECTION As Ordered ONE
[2023-12-30 09:37] LABS: HEMATOCRIT 36.9 % (36.0-47.0); HEMOGLOBIN 11.1 g/dl (12.0-15.5); MEAN CORPUSCULAR HEMOGLOBIN 27.3 pg (27.0-33.0); MEAN CORPUSCULAR HGB CONC 30.1 g/dl (32.0-36.5); MEAN CORPUSCULAR VOLUME 90.9 fl (80.0-96.0); PLATELET COUNT, AUTOMATED 275 10^3/uL (150-450); RED BLOOD COUNT 4.06 10^6/uL (4.00-5.40); WHITE BLOOD COUNT 7.2 10^3/uL (4.0-10.0)
[2023-12-30 09:49] LABS: INR 1.04; PROTHROMBIN TIME 13.3 SECONDS (12.5-14.5)
[2023-12-30 09:54] LABS: ERYTHROCYTE SEDIMENTATION RATE 56 mm/hr (0-30)
[2023-12-30 10:09] LABS: ALBUMIN 3.6 G/DL (3.2-5.2); BILIRUBIN,TOTAL 0.3 MG/DL (0.3-1.2); CALCIUM LEVEL 10.3 MG/DL (8.3-10.6); CREATININE FOR GFR 1.8 MG/DL (0.55-1.30); POTASSIUM SERUM 4.2 MMOL/L (3.5-5.1); TOTAL PROTEIN 6.8 G/DL (5.7-8.2)
== END ==
LOC: M RAD 08:26
PROVIDERS: ATTEND Orthopaedic Surgery
DX: Z01.818 Encounter for other preprocedural examination (principal); Z79.01 Long term (current) use of anticoagulants

== ENCOUNTER 2024-08-02 20:05 | Observation (INO) | payer MEDICARE ==
[~2024-08-02] VITALS: Ht 162.6 cm; Wt 90.7 kg
[2024-08-02 20:37] LABS: BASO % 0.4 % (0.0-1.0); EOS % 0.1 % (0.0-3.0); HEMATOCRIT 34.6 % (36.0-47.0); HEMOGLOBIN 10.5 g/dl (12.0-15.5); LYMPH # 0.7 10^3/uL (1.5-5.0); LYMPH % 9.2 % (24.0-44.0); MEAN CORPUSCULAR HEMOGLOBIN 26.6 pg (27.0-33.0); MEAN CORPUSCULAR HGB CONC 30.3 g/dl (32.0-36.5); MEAN CORPUSCULAR VOLUME 87.6 fl (80.0-96.0); MONO # 0.6 10^3/uL (0.0-0.8); MONO % 7.7 % (2.0-8.0); NEUTROPHILS # 6.3 10^3/uL (1.5-8.5); NEUTROPHILS % 82.1 % (36.0-66.0); PLATELET COUNT, AUTOMATED 246 10^3/uL (150-450); RED BLOOD COUNT 3.95 10^6/uL (4.00-5.40); WHITE BLOOD COUNT 7.7 10^3/uL (4.0-10.0)
[2024-08-02 21:00] LABS: CK-MB VALUE MASS 5.5 NG/ML (<3.6)
[2024-08-02 21:01] LABS: ALBUMIN 3.6 G/DL (3.2-5.2); BILIRUBIN,DIRECT 0.1 MG/DL (<0.4); BILIRUBIN,TOTAL 0.4 MG/DL (0.3-1.2); CALCIUM LEVEL 10.4 MG/DL (8.3-10.6); CREATININE FOR GFR 1.65 MG/DL (0.55-1.30); GLOMERULAR FILTRATION RATE 32.1 (>39); MAGNESIUM LEVEL 2.1 MG/DL (1.8-2.4); POTASSIUM SERUM 3.6 MMOL/L (3.5-5.1); TOTAL PROTEIN 7.2 G/DL (5.7-8.2)
[2024-08-02 21:03] LABS: THYROID STIMULATING HORMONE 1.77 uIU/ML (0.55-4.78)
[2024-08-02 21:05] LABS: MB/CK RELATIVE INDEX 1.55 (< OR =4)
[2024-08-02 21:12] LABS: INR 1.04; PROTHROMBIN TIME 13.9 SECONDS (12.5-14.5)
[2024-08-02 22:12] LABS: CK-MB VALUE MASS 9.6 NG/ML (<3.6)
[2024-08-02 22:17] LABS: MB/CK RELATIVE INDEX 1.64 (< OR =4)
[2024-08-03] MEDS ORDERED: methocarbamoL 500 MG TAB PO PRN (01:30)
[2024-08-03] MEDS ORDERED: ACETAMINOPHEN 325 MG TAB PO PRN (01:30)
[2024-08-03] MEDS ORDERED: ACETAMINOPHEN 500 MG TAB PO PRN (01:40)
[2024-08-03 02:45] VITALS: BP 140/71; TEMP 97.3; O2SAT 95
[2024-08-03] MEDS: NS (Normal Saline) 0.9% 1,000 ML IV SCH ×2 (02:54→10:48)
[2024-08-03] MEDS: MUPIROCIN 2% OINT 22 GM TUBE TOP SCH (03:13)
[2024-08-03] MEDS: NYSTATIN 100,000 UNITS/GM TOPICAL PWD 15GM TOP PRN (03:14)
[2024-08-03] MEDS ORDERED: HYDR-3716 PO (03:16)
[2024-08-03] MEDS ORDERED: ALLO300T2 PO (03:16)
[2024-08-03] MEDS ORDERED: HOME MED LIST COMPLETE! XX SCH (03:20)
[2024-08-03 05:48] VITALS: BP 149/81; TEMP 97.3; O2SAT 95
[2024-08-03 06:23] LABS: HEMATOCRIT 30.7 % (36.0-47.0); HEMOGLOBIN 9.3 g/dl (12.0-15.5); MEAN CORPUSCULAR HEMOGLOBIN 26.3 pg (27.0-33.0); MEAN CORPUSCULAR HGB CONC 30.3 g/dl (32.0-36.5); PLATELET COUNT, AUTOMATED 216 10^3/uL (150-450); RED BLOOD COUNT 3.53 10^6/uL (4.00-5.40); WHITE BLOOD COUNT 6.2 10^3/uL (4.0-10.0)
[2024-08-03 06:30] LABS: MAGNESIUM LEVEL 2.2 MG/DL (1.8-2.4)
[2024-08-03 06:56] LABS: BILIRUBIN,TOTAL 0.4 MG/DL (0.3-1.2); CREATININE FOR GFR 1.58 MG/DL (0.55-1.30); GLOMERULAR FILTRATION RATE 33.8 (>39); POTASSIUM SERUM 3.4 MMOL/L (3.5-5.1); TOTAL PROTEIN 6.4 G/DL (5.7-8.2)
[2024-08-03] MEDS ORDERED: LIDOCAINE 5% (LIDODERM) PATCH TD SCH (09:00)
[2024-08-03] MEDS: LIDOCAINE 5% (LIDODERM) PATCH TD SCH (09:26)
[2024-08-03] MEDS: DOCUSATE SODIUM 100MG CAPSULE PO SCH (09:26)
[2024-08-03] MEDS: HEPARIN SOD (PORCINE) 5000UNITS/ML 1ML VIAL/SYRINGE SC SCH (09:26)
[2024-08-03] MEDS ORDERED: PILL CUTTER 1 EACH XX PRN (10:55)
[2024-08-03] MEDS: OMEPRAZOLE 20MG CAP PO SCH (11:32)
[2024-08-03] MEDS: SERTRALINE 100 MG TAB PO SCH (11:32)
[2024-08-03] MEDS: allopurinoL 300 MG TAB PO SCH (11:32)
[2024-08-03] MEDS: POTASSIUM CHLORIDE 10MEQ SR TABLET PO ONE (11:32)
[2024-08-03 11:33] VITALS: BP 149/81
[2024-08-03] MEDS: METOPROLOL SUCC *XL* 25MG TAB (TopROL *XL*) PO SCH (11:33)
== END 2024-08-03 13:21 | disposition home or self-care (01) ==
LOC: M ED 20:05 → EDBD 20:05 → INTOOBSV 08-03 01:39 → M ED INP 08-03 01:39 → M MSPAV 08-03 02:44
PROVIDERS: ADMIT Family Medicine; ATTEND Internal Medicine
DX: R55 Syncope and collapse (principal); S00.93XA Contusion of unspecified part of head, initial encounter; S20.211A Contusion of right front wall of thorax, initial encounter; S22.41XG Multiple fractures of ribs, right side, subsequent encounter for fracture with delayed healing; S80.811A Abrasion, right lower leg, initial encounter; W18.30XA Fall on same level, unspecified, initial encounter; Y92.010 Kitchen of single-family (private) house as the place of occurrence of the external cause; Y93.9 Activity, unspecified; Y99.9 Unspecified external cause status; M48.061 Spinal stenosis, lumbar region without neurogenic claudication; M51.369 Other intervertebral disc degeneration, lumbar region without mention of lumbar back pain or lower extremity pain; T40.2X5A Adverse effect of other opioids, initial encounter; R42 Dizziness and giddiness; E04.1 Nontoxic single thyroid nodule; R32 Unspecified urinary incontinence; K59.09 Other constipation; I12.9 Hypertensive chronic kidney disease with stage 1 through stage 4 chronic kidney disease, or unspecified chronic kidney disease; M62.82 Rhabdomyolysis; I67.82 Cerebral ischemia; Z87.891 Personal history of nicotine dependence; N18.30 Chronic kidney disease, stage 3 unspecified; F32.A Depression, unspecified; Z90.89 Acquired absence of other organs; Z90.79 Acquired absence of other genital organ(s); Z96.643 Presence of artificial hip joint, bilateral; Z98.890 Other specified postprocedural states; Z99.89 Dependence on other enabling machines and devices; Z79.899 Other long term (current) drug therapy
CPT/HCPCS: 36415; 70450; 71101; 72125; 72131; 80048; 80053; 80076; 82550; 82553; 83735; 84443; 84484; 85025; 85027; 85610; 93005; 93041; 93306; 94760; 96372; 97116; 97161; 97530; 99285; G0378

== ENCOUNTER → 2024-09-01 | Outpatient (CLI) | payer MEDICARE ==
[~2024-09-01] MED LIST changes: +ALLO300T2 PO; +HYDR-3716 PO
[2024-09-01 11:33] LABS: HEMATOCRIT 38.4 % (36.0-47.0); HEMOGLOBIN 11.4 g/dl (12.0-15.5); MEAN CORPUSCULAR HEMOGLOBIN 26.7 pg (27.0-33.0); MEAN CORPUSCULAR HGB CONC 29.7 g/dl (32.0-36.5); MEAN CORPUSCULAR VOLUME 89.9 fl (80.0-96.0); PLATELET COUNT, AUTOMATED 292 10^3/uL (150-450); RED BLOOD COUNT 4.27 10^6/uL (4.00-5.40); WHITE BLOOD COUNT 8.3 10^3/uL (4.0-10.0)
[2024-09-01 11:42] LABS: ALBUMIN 3.9 G/DL (3.2-5.2); BILIRUBIN,TOTAL 0.3 MG/DL (0.3-1.2); CREATININE FOR GFR 2.09 MG/DL (0.55-1.30); GLOMERULAR FILTRATION RATE 24.4 (>39); POTASSIUM SERUM 4.4 MMOL/L (3.5-5.1); TOTAL PROTEIN 7.8 G/DL (5.7-8.2)
[2024-09-01 11:43] LABS: THYROXINE (T4) 5.7 UG/DL (4.5-10.9)
[2024-09-01 11:44] LABS: THYROID STIMULATING HORMONE 2.199 uIU/ML (0.55-4.78); TOTAL 25(OH) VITAMIN D 61.1 NG/ML (20.0-100.0)
== END ==
LOC: M LAB 10:31
PROVIDERS: ATTEND Family Medicine
DX: D64.9 Anemia, unspecified (principal)

== ENCOUNTER → 2024-10-09 | Outpatient (CLI) | payer MEDICARE | LOC: M RAD 13:31 | PROVIDERS: ATTEND Family Medicine | DX: E04.1 Nontoxic single thyroid nodule (principal) ==

== ENCOUNTER → 2024-11-30 | Outpatient (REF) | payer MEDICARE ==
[2024-11-30 18:02] LABS: PERCENT SATURATION 12.3 % (13.2-45.0)
[2024-11-30 18:05] LABS: FERRITIN 13.3 NG/ML (7.3-270.7)
== END ==
LOC: M LAB REF 17:24
PROVIDERS: ATTEND Nurse Practitioner Family
DX: D50.9 Iron deficiency anemia, unspecified (principal)

== ENCOUNTER → 2025-04-19 | Outpatient (CLI) | payer MEDICARE | LOC: M RAD 11:31 | PROVIDERS: ATTEND Physician Assistant | DX: L97.912 Non-pressure chronic ulcer of unspecified part of right lower leg with fat layer exposed (principal) ==

== ENCOUNTER 2025-05-04 16:47 | Emergency (ER) | payer MEDICARE ==
[2025-05-04] MEDS: ACETAMINOPHEN *IV* 1,000 MG in IV 1 EA IV ONE (17:37)
[2025-05-04 17:49] LABS: BASO # 0.1 10^3/uL (0.0-0.2); BASO % 0.6 % (0.0-1.0); EOS # 0.3 10^3/uL (0.0-0.5); EOS % 3.1 % (0.0-3.0); LYMPH # 1.3 10^3/uL (1.5-5.0); LYMPH % 15.4 % (24.0-44.0); MONO # 0.6 10^3/uL (0.0-0.8); MONO % 6.8 % (2.0-8.0); NEUTROPHILS # 6.1 10^3/uL (1.5-8.5); NEUTROPHILS % 73.1 % (36.0-66.0); PLATELET COUNT, AUTOMATED 291 10^3/uL (150-450)
[2025-05-04 18:07] LABS: CALCIUM LEVEL 9.7 MG/DL (8.3-10.6); CARBON DIOXIDE LEVEL 26.0 MMOL/L (20-31); CHLORIDE LEVEL 104.0 MMOL/L (98-107); CREATININE FOR GFR 1.53 MG/DL (0.55-1.30); GLOMERULAR FILTRATION RATE 34.6 (>39); POTASSIUM SERUM 4.2 MMOL/L (3.5-5.1); SODIUM LEVEL 138.0 MMOL/L (136-145)
[2025-05-04 18:35] VITALS: BP 162/74; TEMP 97.9; O2SAT 98
== END 2025-05-04 19:22 | disposition home or self-care (01) ==
LOC: EDBD 16:47 → M ED 16:47
DX: M54.50 Low back pain, unspecified (principal); E04.1 Nontoxic single thyroid nodule; I10 Essential (primary) hypertension; K21.9 Gastro-esophageal reflux disease without esophagitis; Z79.1 Long term (current) use of non-steroidal anti-inflammatories (NSAID); Z79.899 Other long term (current) drug therapy
CPT/HCPCS: 70450; 72125; 72131; 80048; 85025; 96365; 96366; 99284; J0131

== ENCOUNTER 2025-05-12 03:59 | Emergency (ER) | payer MEDICARE ==
[~2025-05-12] VITALS: Ht 162.6 cm; Wt 93.9 kg
[2025-05-12] MEDS: MORPHINE 4 MG/ML 1 ML VIAL IV ONE (07:21)
[2025-05-12 07:25] LABS: BASO # 0.0 10^3/uL (0.0-0.2); BASO % 0.3 % (0.0-1.0); EOS # 0.2 10^3/uL (0.0-0.5); EOS % 2.0 % (0.0-3.0); LYMPH # 1.4 10^3/uL (1.5-5.0); LYMPH % 13.3 % (24.0-44.0); MONO # 0.7 10^3/uL (0.0-0.8); MONO % 6.6 % (2.0-8.0); NEUTROPHILS # 7.8 10^3/uL (1.5-8.5); NEUTROPHILS % 77.3 % (36.0-66.0); PLATELET COUNT, AUTOMATED 285 10^3/uL (150-450)
[2025-05-12 07:52] LABS: CALCIUM LEVEL 9.8 MG/DL (8.3-10.6); CARBON DIOXIDE LEVEL 28.0 MMOL/L (20-31); CHLORIDE LEVEL 104.0 MMOL/L (98-107); CREATININE FOR GFR 1.69 MG/DL (0.55-1.30); GLOMERULAR FILTRATION RATE 30.7 (>39); POTASSIUM SERUM 5.1 MMOL/L (3.5-5.1); SODIUM LEVEL 141.0 MMOL/L (136-145)
[2025-05-12 10:01] VITALS: BP 155/65
[2025-05-12 10:16] VITALS: TEMP 97.8; O2SAT 95
[2025-05-12] MEDS: MORPHINE 4 MG/ML 1 ML VIAL IV PRN (10:27)
== END 2025-05-12 10:35 | disposition short-term general hospital (02) ==
LOC: M ED 03:59
DX: S72.302A Unspecified fracture of shaft of left femur, initial encounter for closed fracture (principal); Y92.019 Unspecified place in single-family (private) house as the place of occurrence of the external cause; Y93.9 Activity, unspecified; Y99.9 Unspecified external cause status; W18.2XXA Fall in (into) shower or empty bathtub, initial encounter; I51.7 Cardiomegaly; I10 Essential (primary) hypertension; I45.10 Unspecified right bundle-branch block
CPT/HCPCS: 71045; 73552; 80048; 85025; 93005; 96374; 96375; 96376; 99285; J3010

== ENCOUNTER → 2025-07-01 | Outpatient (REF) | payer MEDICARE ==
[2025-07-01 18:12] LABS: BASO # 0.0 10^3/uL (0.0-0.2); BASO % 0.4 % (0.0-1.0); EOS # 0.3 10^3/uL (0.0-0.5); EOS % 3.5 % (0.0-3.0); LYMPH # 1.0 10^3/uL (1.5-5.0); LYMPH % 13.9 % (24.0-44.0); MONO # 0.5 10^3/uL (0.0-0.8); MONO % 6.0 % (2.0-8.0); NEUTROPHILS # 5.7 10^3/uL (1.5-8.5); NEUTROPHILS % 75.8 % (36.0-66.0); PLATELET COUNT, AUTOMATED 294 10^3/uL (150-450)
[2025-07-01 18:31] LABS: ALT/SGPT 12.0 U/L (7.0-40); AST/SGOT 13.0 U/L (<34); CALCIUM LEVEL 10.2 MG/DL (8.3-10.6); CARBON DIOXIDE LEVEL 26.0 MMOL/L (20-31); CHLORIDE LEVEL 105.0 MMOL/L (98-107); CREATININE FOR GFR 1.64 MG/DL (0.55-1.30); GLOMERULAR FILTRATION RATE 31.9 (>39); IRON (FE) 28.0 UG/DL (50-170); PERCENT SATURATION 10.3 % (13.2-45.0); POTASSIUM SERUM 4.8 MMOL/L (3.5-5.1); SODIUM LEVEL 143.0 MMOL/L (136-145)
== END ==
LOC: M SHH 16:25
DX: N18.9 Chronic kidney disease, unspecified (principal); D63.1 Anemia in chronic kidney disease